=== PATIENT | female | born 2000 | race Caucasian/White ===

== ENCOUNTER 2024-09-07 14:12 | Emergency (ER) | payer OTHER, SELFPAY ==
[2024-09-07] VITALS (9 sets, daily range): BP systolic 102–145; BP diastolic 69–85; PULSE 111–209; RESP 15–20; TEMP 36.4; O2SAT 97–100
--- NOTE | ~2024-09-07 | XR_ITS ---
XR chest 1V portable DATE: 09/07/2024 15:07 INDICATION: Supraventricular tachycardia TECHNIQUE: Portable AP chest on 09/07/2024 1506 hours COMPARISON: None FINDINGS: Normal heart size. No hilar or mediastinal enlargement. No pulmonary infiltrate or consolidation, pleural effusion or pulmonary vascular congestion or pneumo thorax. IMPRESSION: No active cardiopulmonary disease Reviewed, dictated and finalized at location A. NESS DATABASE ANALYST
--- NOTE | 2024-09-07 14:20 | ECG_ITS ---
Test Date: 2024-09-07 14:23:00 Measurements Intervals [place] Rate: 202 P: 0 SC: 0 QRS: 2 QRSD: 90 T: -4 QT: 226 QTc: 414 Interpretive Statements SUPRAVENTRICULAR TACHYCARDIA NONSPECIFIC ST & T-WAVE ABNORMALITY ABNORMAL RHYTHM ECG No previous ECG available for comparison Electronically Signed On 09-07-2024 15:05:27 [employer]ESS [employer] MECHANIC by Ian Paris M.D.
[2024-09-07] MEDS: dilTIAZem HCl INJ 25 MG/5 ML VIAL (14:30)
[2024-09-07] MEDS: ADENOSINE IV SOLN 6 MG/2 ML VIAL 12 MG IV PUSH (14:32)
--- NOTE | 2024-09-07 14:32 | ECG_ITS ---
Test Date: 2024-09-07 14:32:41 Measurements Intervals [place] Rate: 125 P: 44 NC: 172 QRS: 2 QRSD: 90 T: 28 QT: 318 QTc: 459 Interpretive Statements SINUS TACHYCARDIA LEFT VENTRICULAR HYPERTROPHY AND ST-T CHANGE [VOLTAGE CRITERIA PLUS ST/T ABNORMALITY] Compared to ECG 09/07/2024 14:23:00 sinus tachycardia replaced supraventricular tachycardia Electronically Signed On 09-07-2024 15:05:47 SENIOR ENLISTED ADVISOR by Ian Paris M.D.
[2024-09-07] MEDS: MAGNESIUM SULF 2 GM/WATER 50ML 2 GM/50 ML BAG IVPB (14:43)
[2024-09-07] MEDS: SODIUM CHLORIDE 0.9% IV 1,000 ML 999 ML IV CONT (14:44)
[2024-09-07 14:57] LABS: BEDSIDEPREGUCG Negative (Negative)
[2024-09-07] MEDS: LACTATED RINGERS 1,000 ML 999 ML IV CONT (15:00)
[2024-09-07 15:05] LABS: Basophils Percent Auto 0.4 % (0.2-1.2); Eosinophils Absolute Auto 0.3 K/mm3 (0-0.3); Eosinophils Percent Auto 3.5 % (0-4.4); Hematocrit 39.4 % (37.0-47.0); Immature Granulocyte Absolute 0.02 K/mm3 (0.00-0.031); Immature Granulocyte Percent A 0.2 % (0-0.5); Lymphocytes Absolute Auto 2.39 K/mm3 (0.9-3.2); Lymphocytes Percent Auto 28.7 % (18.3-44.2); Mean Corpuscular Hemoglobin 28.3 pg (26-34); Mean Corpuscular Volume 85.7 fl (80-100); Mean Platelet Volume 11.2 fl (7.4-10.4); Monocytes Absolute Auto 0.7 K/mm3 (0.1-0.6); Neutrophils Absolute Auto 4.9 K/mm3 (1.3-6.7); Neutrophils Percent Auto 59.2 % (45.5-73.1); Platelet Count Result 201 k/mm3 (150-375); Red Cell Distribution Width 13.2 % (11.5-14.5); White Blood Count 8.3 K/mm3 (4.5-10.0)
[2024-09-07 15:09] LABS: Alanine Aminotransferase 33 U/L (6-35); Albumin Level 4.2 g/dL (3.5-5.1); Alkaline Phosphatase 90 U/L (38-126); Anion Gap 11 mmol/L (4-12); Aspartate Amino Transferase 31 U/L (14-36); Bilirubin,Total 0.7 mg/dL (0.2-1.3); Blood Urea Nitrogen 11 mg/dL (7-17); Calcium 9.1 mg/dL (8.4-10.2); Carbon Dioxide 20 mmol/L (22-30); Chloride 108 mmol/L (98-107); Estimated Glomerular Filt Rate > 60; Glucose 100 mg/dL (65-110); Lipase 53 U/L (23-300); Potassium 3.2 mmol/L (3.4-5.0); Sodium 139 mmol/L (137-145)
[2024-09-07 15:14] LABS: Prothrombin Time 13.7 Seconds (11.1-14.7)
[2024-09-07 15:15] LABS: Partial Thromboplastin Time 27.7 Seconds (22.3-36.8); SPREG INTERNAL CONTROL Positive; Serum Qual hCG Negative
[2024-09-07 15:17] LABS: Amphetamine Screen Urine Negative (Negative); Barbiturate Screen Urine Negative (Negative); Benzodiazepines Screen Urine Negative (Negative); Cannabinoid Screen Urine Negative (Negative); Cocaine Screen Urine Negative (Negative); Methadone Screen Urine Negative (Negative); Opiate Screen Urine Negative (Negative); Phencyclidine Screen Urine Negative (Negative)
[2024-09-07 15:20] LABS: NT Pro B Type Natriuretic Pept 60 pg/mL (19.9-100); Troponin I < 0.012 ng/mL (0.000-0.034)
--- NOTE | 2024-09-07 16:08 | ED_ITS ---
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 . This was 1 year prior. She was previously on metoprolol but was discontinued after seeing a health unit clerk outpatient. Today she presents via EMS for concerns of recurrence of an SVT episode. Symptoms are going on for about 1-2 hours prior to EMS arrival. EMS did try ice water maneuvers, vagal maneuvers, 6 mg and then 12 mg of adenosine with only minor improvement of blood pressure and heart rate but immediately with back in the 220s with narrow complex tachycardia. Patient states she was previously in her normal state of health. She states she is anxious at baseline and feels like this could have triggered her SVT today. Denies any chest pain, shortness a breath, nausea, vomiting, abdominal pain, fever, chills. Patient states she is anxious right now but also feels like her heart is racing. States it feels very similar to last time she was in SVT but that was attributed to the . She denies any chance of at this time. Presently not taking any kind of blood pressure medications or beta montez, calcium channel medication. Related Data Allergies Allergy/AdvReac Type Severity Reaction Status Date / Time No Known Allergies Allergy Unverified 08/16/15 14:46 Review of Systems Review of Systems: As reviewed above in HPI Exam Narrative: GENERAL: [Well-appearing, well-nourished, and in no acute distress.] HEAD: [Normocephalic, atraumatic.] EYES: [PERRLA and EOMI.] ENT: Nares clear, no rhinorrhea or epistaxis. Mucous membranes moist. NECK: Supple. CHEST: [Clear to auscultation. No respiratory distress.] HEART: symmetric tachycardic pulse with regular rhythm. Elevated in the 200s. Warm well-perfused extremities. ABDOMEN: [Soft, nondistended], [nontender], [No rigidity or guarding] EXTREMITIES: Normal range of motion. [No edema.] SKIN: Warm, dry, no rash. NEURO: [No focal deficits]. Alert and oriented [x3.] PSYCH: Anxious appearing but answering all questions appropriately, Course Vital Signs Vital signs: Vital Signs Temperature 36.4 C 09/07/24 14:12 Pulse Rate 209 H 09/07/24 14:12 Respiratory Rate 18 09/07/24 14:12 Blood Pressure 144/79 H 09/07/24 14:12 Pulse Oximetry 100 09/07/24 14:12 Oxygen Delivery Room Air 09/07/24 14:12 Temperature 36.4 C 09/07/24 14:12 Pulse Rate 111 H 09/07/24 19:10 Respiratory Rate 18 09/07/24 19:10 Blood Pressure 102/72 09/07/24 19:10 Pulse Oximetry 100 09/07/24 19:10 Oxygen Delivery Room Air 09/07/24 14:12 MDM - Arrhythmia/Palpitations MDM Narrative Medical decision making narrative: 24-year-old female with history of 1 episode of previous SVT triggered in the peripartum one year prior. today she presents with a recurrence of potential SVT. EMS notes a narrow complex tachycardia with a pulse in the 200-220 range with regular rhythm. She denies any chest pain, shortness a breath, nauseous, vomiting, back pain. Denies any chance of . Patient states she is anxious and does appear anxious but not ill-appearing. She has a solid blood pressure 144/79. Tachycardic pulse in the 200s. Neuro complex on the monitor. No fever, hypoxia or tachypnea. Warm well-perfused extremities. Currently in stable SVT that has been refractory to 6 mg and 12 mg of adenosine and vagal maneuvers by EMS. She was placed on a director cardiac and made a resuscitation at this time. EKG shows narrow complex tachycardia consistent with supraventricular tachycardia with no signs of additional ectopy or ischemic changes. A 2nd IV was established and she was given a 3rd dose of adenosine 12 mg IV push with normal saline flush. There was a brief slowing of the heart rate into the 180s but still narrow complex SVT without any aberrant conduction, ectopy or sinus pause seen. patient still remained stable without any signs of chest pain, shortness a breath, mental status changes or syncope. At this time second-line agent was initiated with Cardizem 0.25 milligrams/kilogram for a total of 20 mg dose. This was initiated and had improvement her heart rate with resolution of the SVT. Repeat rhythm strip and 12 lead shows sinus tachycardia with a rate in the 130s to 140s. No ST segment elevations, changes or ectopy. Currently patient has had resolution of her SVT and will hold off on additional dose of Cardizem or Cardizem infusion at this time but will continue to monitor and see if she requires additional treatment. She was empirically given 2 g of magnesium sulfate for potential electrolyte disturbances. Patient does inform me that she has not been eating or drinking as appropriate his last few days and has only been really drinking soda pop. Laboratory studies were obtained including thyroid panel, CBC, CMP, troponins, EKG, chest x-ray, test. Patient was frequently re-evaluated and still maintaining sinus tachycardia without any recurrence of her SVT. Patient still had maintaining normal vital signs and lacked any complaints at this time besides still feeling anxious. I offered her some medications for the anxiety but she declined politely. Laboratory studies were reassuring But do show a hypokalemia 3.2 and slightly low potassium and magnesium. negative troponin, normal TSH, negative lipase, negative test. Urine drug screen negative. Chest x-ray was independently reviewed and also interpreted by Radiology without any acute cardiopulmonary process identified. patient steadily had improvement her pulse was down to the upper 90s low 100s, had no further complaints while here in the emergency department and had her magnesium and electrolytes repleted with potassium both IV and oral. At this time I believe she is stable for discharge home given the lack of any recurrent symptoms or recurrence of her SVT. Given that diltiazem did improve for after failure of adenosine I believe we can safely start her on a medication for control of her heart rate until she can be safely seen outpatient by Cardiology. 60 mg of extended-release diltiazem was prescribed to her b.i.d. with precautions and warning signs to watch out for including hypotension, syncope, presyncope, chest pain, shortness a breath or any other concerns. She was also started on potassium supplementations sent to her pharmacy. The patient and family verbalized understanding of these instructions and plan of care going forward and they were agreeable to outpatient follow-up with Cardiology. Patient stable and safe for discharge home at this time. Differential Diagnosis Differential diagnosis: Likely palpitations, anxiety, sinus tachycardia, artial fibrillation, artial flutter, ventricular premature beats, supraventricular tachycardia, ventricular tachycardia and WPW Medical Records Attestation: I reviewed the patient's medical records. Lab Data Attestation: I reviewed the patient's lab results. 12/08/24 14:53 09/07/24 14:53 Labs: Lab Results 09/07/24 09/07/24 Range/Units 14:53 14:55 WBC 8.3 (4.5-10.0) K/mm3 RBC 4.60 (4.2-5.4) M/mm3 Hgb 13.0 (12.0-15.0) g/dL Hct 39.4 (37.0-47.0) % MCV 85.7 (80-100) fl MCH 28.3 (26-34) pg MCHC 33.0 (32-36) g/dl RDW 13.2 (11.5-14.5) % Plt Count 201 (150-375) k/mm3 MPV 11.2 H (7.4-10.4) fl Immature Gran % (Auto) 0.2 (0-0.5) % Neut % (Auto) 59.2 (45.5-73.1) % Lymph % (Auto) 28.7 (18.3-44.2) % [place] % (Auto) 8.0 (2.6-8.5) % Eos % (Auto) 3.5 (0-4.4) % Baso % (Auto) 0.4 (0.2-1.2) % Lymph # (Auto) 2.39 (0.9-3.2) K/mm3 [place] # (Auto) 0.7 H (0.1-0.6) K/mm3 Eos # (Auto) 0.3 (0-0.3) K/mm3 Baso # (Auto) 0.0 (0.0-0.1) K/mm3 Abs Immat Gran (auto) 0.02 (0.00-0.031) K/mm3 Absolute Neuts (auto) 4.9 (1.3-6.7) K/mm3 Absolute Nucleated RBC 0.000 (0.0-0.012) K/mm3 Nucleated RBC % 0.0 (0.0-0.2) % PT 13.7 (11.1-14.7) Seconds INR 1.0 APTT 27.7 (22.3-36.8) Seconds Sodium 139 (137-145) mmol/L Potassium 3.2 L (3.4-5.0) mmol/L Chloride 108 H (98-107) mmol/L Carbon Dioxide 20 L (22-30) mmol/L Anion Gap 11 (4-12) mmol/L BUN 11 (7-17) mg/dL Creatinine 0.50 L (0.7-1.0) mg/dL Estim Creat Clear Calc Not Reportable Estimated GFR > 60 (59 - ) Glucose 100 (65-110) mg/dL Calcium 9.1 (8.4-10.2) mg/dL Total Bilirubin 0.7 (0.2-1.3) mg/dL AST 31 (14-36) U/L ALT 33 (6-35) U/L Alkaline Phosphatase 90 (38-126) U/L Troponin I < 0.012 (0.000-0.034) ng/mL NT-Pro-B Natriuret Pep 60 (19.9-100) pg/mL Total Protein 8.0 (6.3-8.2) g/dL Albumin 4.2 (3.5-5.1) g/dL Lipase 53 (23-300) U/L TSH (Reflex) 1.340 (0.465-4.68) uIU/mL Serum HCG, Qual Negative POC Urine HCG, Qual Negative (Negative) Urine Opiates Screen Negative (Negative) Urine Methadone Screen Negative (Negative) Ur Barbiturates Screen Negative (Negative) Ur Phencyclidine Scrn Negative (Negative) Ur Amphetamine Screen Negative (Negative) U Benzodiazepines Scrn Negative (Negative) Urine Cocaine Screen Negative (Negative) U Cannabinoids Screen Negative (Negative) Imaging Data Attestation: I personally reviewed and interpreted this imaging study as follows: My impression: Impressions Chest X-Ray 09/07/24 15:08 IMPRESSION: No active cardiopulmonary disease ECG Data EKG #1: Attestation: I personally reviewed and interpreted this ECG as follows: ECG completion date: 09/07/24 ECG completion time: 14:23 Prior ECG tracings: not available for review Interpretation: Supraventricular tachycardia, no identifiable P waves, rate of 202, QTC normal 414, QRS normal at 90. Narrow complex tachycardia with signs of supra ventricular tachycardia but no evidence of acute ischemic changes. No other ectopy identified. No previous EKG to compare. final impression supraventricular tachycardia without aberrancy EKG #2: Attestation: I personally reviewed and interpreted this ECG as follows: ECG completion date: 09/07/24 ECG completion time: 14:32 Prior ECG tracings: available for review Interpretation: sinus tachycardia, resolution of the previous SVT from earlier. No ST segment elevations or depressions are new ectopy. Regular rhythm and axis. QTC normal at 459, QRS of 90, MS 172. Overall sinus tachycardia with resolution of SVT. Critical Care Time Critical Care Time Critical Care Time: Yes Total Critical Care Time: 60 Discharge Plan Discharge Clinical Impression: Supraventricular tachycardia Patient Disposition: Home, Self-Care Condition: Stable Instructions: Antibiotic Form, Supraventricular Tachycardia (ED) Additional Instructions: your SVT today could have been secondary to your low electrolytes including potassium and magnesium. We have replenished them here in the emergency department and your SVT has stopped after starting a medication called dil tiazem. We have sent her home with a prescription for both potassium and diltiazem. Take this prescription as directed and follow-up with the health unit clerk we will refer you to. Stop take this medication you experience any significant lightheadedness, dizziness, chest pain, shortness a breath or any feelings like you are going to pass out. If you have any recurrence of your SVT or palpitations call EMS or return to the emergency department. Prescriptions: New potassium chloride 20 mEq packet 20 meq PO DAILY Qty: 30 0RF diltiazem HCl 60 mg capsule,extended release 12 hr 60 mg PO BID Qty: 60 0RF Follow-up/Referrals: Ian Paris MD [Physician] - 1 Week (Recurrent SVT, started on Diltiazem in ED) Micah,Hermelinda Strong MD [Primary Care Provider] - Time of Disposition: 17:56
[2024-09-07] MEDS: POTASSIUM CHLORIDE INJ 40 MEQ in SODIUM CHLORIDE 0.9% IV 500 ML 130 MEQ IVPB (16:24)
[2024-09-07] MEDS: POTASSIUM CHLORIDE 20 MEQ PACKET (FOR LIQUID) 40 MEQ PO (18:30)
== END 2024-09-07 19:13 | disposition home or self-care (01) ==
PROVIDERS: Emergency Provider Student in an Organized Health Care Education/Training Program; PCP Pediatrics Pediatric Emergency Medicine
DX: I47.10 Supraventricular tachycardia, unspecified (principal)
CPT/HCPCS: 36415; 71045; 80053; 80307; 81025; 83690; 83880; 84443; 84484; 84703; 85025; 85610; 85730; 93005; 96361; 96365; 96366; 96375; 99284; A9270; J0153; J3475; J3480; J7030; J7040; J7120